=== PATIENT | male | born 1980 | race Asian ===

== ENCOUNTER 2024-09-30 00:53 | Emergency (ER) | payer SELFPAY ==
[2024-09-30] MEDS ORDERED: NA CHLORIDE 0.9% 1,000 ML ONE (01:10)
--- NOTE | 2024-09-30 01:35 | EDPHYS ---
Physician Documentation [facility] Name: Juaquin Blanco Age: 44 yrs Sex: Male : 1980 Arrival Date: 09/30/2024 Time: 00:53 Bed 14 Private MD: ED Physician Emery Wells HPI: 09/30 00:58 This 44 yrs old Unknown Male presents to ER via Unassigned with complaints of Overdose. sp3 00:58 44-year-old male with history of drug abuse and narcotic abuse presents to the ED via sp3 EMS for altered mental status now resolved after Narcan administration by patient's girlfriend prior to EMS arrival. Patient states that he took several Xanax that he bought off the street that were likely laced with fentanyl. Patient stopped breathing and girlfriend gave 2 doses of Narcan intranasally after which patient awoke. EMS found patient alert but sleepy and placed on oxygen and monitor patient to the ED. IV established prior to arrival. Review of systems otherwise negative for headache, trauma, neck pain, chest pain, shortness of breath, abdominal, vomiting, diarrhea, rash, bleeding or any other signs or symptoms on ROS at this time.. Historical: - Allergies: 00:55 No Known Allergies; rg5 - Immunization history:: Adult Immunizations not up to date. - Infectious Disease History:: Denies. - Social history:: Smoking status: Patient reports the use of cigarette tobacco products, denies chronic smoking, but will smoke occasionally. ROS: 00:59 Constitutional: Negative for fever, chills, and weight loss, Eyes: Negative for injury, sp3 pain, redness, and discharge, ENT: Negative for injury, pain, and discharge, Neck: Negative for injury, pain, and swelling, Cardiovascular: Negative for chest pain, palpitations, and edema, Abdomen/GI: Negative for abdominal pain, nausea, vomiting, diarrhea, and constipation, Back: Negative for injury and pain, MS/Extremity: Negative for injury and deformity, Skin: Negative for injury, rash, and discoloration, Allergy/Immunology: Negative for hives, rash, and allergies, Endocrine: Negative for neck swelling, polydipsia, polyuria, polyphagia, and marked weight changes, 00:59 All other systems are negative, Exam: 01:00 Constitutional: This is a well developed, well nourished patient who is awake, alert, sp3 and in no acute distress. Head/Face: Normocephalic, atraumatic. Eyes: Pupils equal round and reactive to light, extra-ocular motions intact. Lids and lashes normal. Conjunctiva and sclera are non-icteric and not injected. Cornea within normal limits. Periorbital areas with no swelling, redness, or edema. Neck: Trachea midline, no thyromegaly or masses palpated, and no cervical lymphadenopathy. Supple, full range of motion without nuchal rigidity, or vertebral point tenderness. No Meningismus. Chest/axilla: Normal chest wall appearance and motion. Nontender with no deformity. No lesions are appreciated. Cardiovascular: Regular rate and rhythm with a normal S1 and S2. No gallops, murmurs, or rubs. Normal PMI, no JVD. No pulse deficits. Respiratory: Lungs have equal breath sounds bilaterally, clear to auscultation and percussion. No rales, rhonchi or wheezes noted. No increased work of breathing, no retractions or nasal flaring. Abdomen/GI: Soft, non-tender, with normal bowel sounds. No distension or tympany. No guarding or rebound. No evidence of tenderness throughout. Back: No spinal tenderness. No costovertebral tenderness. Full range of motion. Skin: Warm, dry with normal turgor. Normal color with no rashes, no lesions, and no evidence of cellulitis. MS/ Extremity: Pulses equal, no cyanosis. Neurovascular intact. Full, normal range of motion. Neuro: Awake and alert, GCS 15, oriented to person, place, time, and situation. Cranial nerves II-XII grossly intact. Motor strength 5/5 in all extremities. Sensory grossly intact. Cerebellar exam normal. Normal gait. Psych: Awake, alert, with orientation to person, place and time. Behavior, mood, and affect are within normal limits. Vital Signs: 00:55 BP 134 / 88; Pulse 87; Resp 17; Temp 98; Pulse Ox 97% on R/A; Weight 89.36 kg; Height 6 rg5 ft. 2 in. ; 02:10 BP 122 / 79; Pulse 99; Resp 17; Temp 98.3; Pulse Ox 97% on R/A; Pain 0/10; rg5 00:55 Body Mass Index 25.29 (89.36 kg, 187.96 cm) rg5 02:10 Pain Scale: Adult rg5 MDM: 00:55 Medical Screening Exam initiated sp3 01:00 Data reviewed: vital signs, nurses notes. ED course: Differential diagnosis includes sp3 substance abuse with narcotic versus substance abuse with some other product. Patient is now alert and oriented laughing and joking with staff. We will give IV fluids and monitor for short amount of time to ensure it was not a longer acting agent. If no further decline, we will discharge patient home with girlfriend has more Narcan at home as well.. 01:34 ED course: Patient remains awake and alert and oriented and recognizes should have sp3 taken the medicine. He will be going home with his girlfriend who has additional Narcan at home. Both are alert and oriented and not under the influence currently. We will safely discharge home at this time.. 09/30 00:56 Order name: Cardiac monitoring; Complete Time: 01:13 sp3 09/30 00:56 Order name: IV Saline Lock; Complete Time: 01:25 sp3 09/30 00:56 Order name: O2 Per Protocol; Complete Time: 01:13 sp3 09/30 00:56 Order name: O2 Sat Monitoring; Complete Time: :13 sp3 Administered Medications: :25 Drug: NS 0.9% IV 1000 ml IV at 125 ml/hr Per protocol Route: IV; Rate: 125 ml/hr; Site: rg5 right antecubital; 02:09 Follow up: IV Status: Completed infusion; IV Intake: 1000ml rg5 Disposition Summary: 09/30/24 01:35 Discharge Ordered Notes: Location: Home sp3 Condition: Stable sp3 Diagnosis - Narcotic overdose sp3 Followup: sp3 - With: Private Physician - When: Upon discharge from the Emergency Department - Reason: Continuance of care Discharge Instructions: - Discharge Summary Sheet sp3 - Opioid Overdose sp3 Forms: - Medication Reconciliation Form sp3 - Antibiotic Education sp3 - Prescription Opioid Use sp3 - Patient Portal Instructions sp3 - Leadership Thank You Letter sp3 Signatures: Emery Wells MD MD sp3 Aaron Joy RN RN rg5
--- NOTE | 2024-09-30 01:35 | ER ---
Nurse's Notes [facility] Name: Juaquin Blanco Age: 44 yrs Sex: Male : 1980 Arrival Date: 09/30/2024 Time: 00:53 Bed 14 [facility] MD: Diagnosis: Narcotic overdose Presentation: 09/30 00:55 Chief complaint: EMS states: patients girlfriend call us because the patient fall down rg5 on his right side and went unconscious believe to have taken Xanax 1 tab \\T\\ meth. he was been given 2x of Narcan 4 mg intranasal by his GF and already awake when we arrive at the scene. Coronavirus screen: Client denies travel out of the [place] in the last 14 days. Ebola Screen: Patient negative for fever greater than or equal to 101.5 degrees Fahrenheit, and additional compatible Ebola Virus Disease symptoms Patient denies exposure to infectious person. Initial Sepsis Screen: Does the patient meet any 2 criteria? No. Patient's initial sepsis screen is negative. Does the patient have a suspected source of infection? No. Patient's initial sepsis screen is negative. Risk Assessment: Do you want to hurt yourself or someone else? Patient reports no desire to harm self or others. Onset of symptoms was September 30, 2024 at 00:05. Care prior to arrival: Oxygen administered. via nasal cannula. 00:55 Method Of Arrival: EMS: [place] [id number] 00:55 Acuity: DOLORES 3 rg5 00:55 Activity prior to arrival: loss of consciousness. Mechanism of Injury: Fall from rg5 standing position. Triage Assessment: 00:55 General: Appears in no apparent distress. comfortable, Behavior is calm, cooperative, rg5 appropriate for age. Pain: Complains of pain in posterior aspect of right lateral abdomen. EENT: No deficits noted. Neuro: Level of Consciousness is awake, alert, obeys commands, Oriented to person, place, time, situation. Cardiovascular: Denies chest pain, Patient's skin is warm and dry. Respiratory: Airway is patent Trachea midline Respiratory effort is even, unlabored, Respiratory pattern is regular, symmetrical. GI: Abdomen is flat, non-distended. : No signs and/or symptoms were reported regarding the genitourinary system. Derm: Skin is intact, Skin is dry, Skin is normal. Musculoskeletal: Circulation, motion, and sensation intact. Range of motion: intact in all extremities. Historical: - Allergies: 00:55 No Known Allergies; rg5 - Immunization history:: Adult Immunizations not up to date. - Infectious Disease History:: Denies. - Social history:: Smoking status: Patient reports the use of cigarette tobacco products, denies chronic smoking, but will smoke occasionally. Screenin:00 [facility] ED Fall Risk Assessment (Adult) History of falling in the last 3 months, rg5 including since admission No falls in past 3 months (0 pts) Confusion or Disorientation No (0 pts) Intoxicated or Sedated No (0 pts) Impaired Gait No (0 pts) Mobility Assist Device Used No (0 pt) Altered Elimination No (0 pt) Score/Fall Risk Level 0 - 2 = Low Risk Oriented to surroundings, Maintained a safe environment, Hourly rounding (assess needs \\T\\ fall precautionary measures) done. Abuse screen: Denies threats or abuse. Nutritional screening: No deficits noted. Tuberculosis screening: No symptoms or risk factors identified. Assessment: 01:00 Reassessment: see triage assessment. rg5 01:00 General: Appears in no apparent distress. comfortable. Pain: Denies pain. rg5 Overdose: 00:55 [place] Suicide Severity Screening: "In the past month, have you wished you were rg5 or wished you could go to sleep and not wake up?" Patient responds "no." Patient responds "yes." Based off client's responses, additional C-SSRS screening questions required. "In the past month, have you actually had any thoughts of killing yourself?" Patient responds "no." "In your lifetime, have you ever done anything, started to do anything, or prepared to do anything to end your life?" Patient responds "no.". Patient took xanax. 00:55 Overdose occurred 30 minutes to 1 hour ago. rg5 02:09 [place] Suicide Severity Screening: "In the past month, have you wished you were rg5 or wished you could go to sleep and not wake up?" Patient responds "no." "In the past month, have you actually had any thoughts of killing yourself?" Patient responds "no." Patient responds "yes." Based off client's responses, additional C-SSRS screening questions required. "In your lifetime, have you ever done anything, started to do anything, or prepared to do anything to end your life?" Patient responds "no.". Vital Signs: 00:55 BP 134 / 88; Pulse 87; Resp 17; Temp 98; Pulse Ox 97% on R/A; Weight 89.36 kg; Height 6 rg5 ft. 2 in. ; 02:10 BP 122 / 79; Pulse 99; Resp 17; Temp 98.3; Pulse Ox 97% on R/A; Pain 0/10; rg5 00:55 Body Mass Index 25.29 (89.36 kg, 187.96 cm) rg5 02:10 Pain Scale: Adult rg5 ED Course: 00:53 Patient arrived in ED. [id number] 00:55 Emery Wells MD is Attending Physician. sp3 00:55 Arm band placed on left wrist. rg5 01:00 Patient has correct armband on for positive identification. Call light in reach. Side rg5 rails up X 1. Provided Education on: post er care. Door closed. Noise minimized. 01:00 No provider procedures requiring assistance completed. Inserted saline lock: 20 gauge rg5 in right antecubital area, using aseptic technique. Blood collected. Flushed with 10 mL NS. 01:13 Aaron Joy, SANDRA is Primary Nurse. rg5 01:34 Triage completed. rg5 02:09 IV discontinued, bleeding controlled, No redness/swelling at site. Pressure dressing rg5 applied. Administered Medications: 01:25 Drug: NS 0.9% IV 1000 ml IV at 125 ml/hr Per protocol Route: IV; Rate: 125 ml/hr; Site: rg5 right antecubital; 02:09 Follow up: IV Status: Completed infusion; IV Intake: 1000ml rg5 Medication: 01:00 VIS not applicable for this client. rg5 Intake: 02:09 IV: 1000ml; Total: 1000ml. rg5 Outcome: 01:35 Discharge ordered by . sp3 02:10 Discharged to home ambulatory, rg5 02:10 Condition: stable 02:10 Discharge instructions given to patient, Instructed on discharge instructions, follow up and referral plans. Demonstrated understanding of instructions, follow-up care, 02:11 Patient left the ED. rg5 Signatures: Emery Wells MD MD sp3 Yesenia Daniels 6 Aaron Joy, RN RN rg5
[2024-09-30 02:21] VITALS: BP 122/79; TEMP 98.3; O2SAT 97
== END 2024-09-30 02:11 | disposition home or self-care (01) ==
LOC: ER 00:53
DX: T40.601A Poisoning by unspecified narcotics, accidental (unintentional), initial encounter (principal)
CPT/HCPCS: 96360; 99285; J7030

== ENCOUNTER 2024-11-09 18:39 | Emergency (ER) | payer OTHER ==
--- NOTE | 2024-11-09 19:16 | EDPHYS ---
Physician Documentation [facility] Name: Juaquin Blanco Age: 44 yrs Sex: Male : 1980 Arrival Date: 11/09/2024 Time: 18:39 Bed DX3 Private MD: ED Physician Star Perez HPI: 11/09 19:08 This 44 yrs old Male presents to ER via Law [employer] with complaints of sp4 Medical Clearance. 19:13 Patient presents with a complaint of punching himself in the head last night. Patient sp4 complains of headache. Patient is currently in custody. resident medical officer brought patient to be evaluated and cleared.. Historical: - Allergies: 18:41 No Known Allergies; aa5 - Home Meds: 18:41 None [Active]; aa5 - PMHx: 18:41 None; aa5 - PSHx: 18:41 None; aa5 - Immunization history:: Adult Immunizations unknown. - Infectious Disease History:: Denies. - Social history:: Smoking status: Patient reports the use of cigarette tobacco products. Vital Signs: 18:41 BP 127 / 84; Pulse 71; Resp 16 S; Temp 97.5(TE); Pulse Ox 98% on R/A; Weight 90.72 kg aa5 (R); Height 6 ft. 2 in. (R); 18:41 Body Mass Index 25.68 (90.72 kg, 187.96 cm) aa5 MDM: 19:15 Medical Screening Exam initiated sp4 Administered Medications: No medications were administered Disposition Summary: 11/09/24 19:15 Discharge Ordered Problem: new sp4 Symptoms: have improved sp4 Condition: Stable sp4 Diagnosis - Acute headache, Anger and irritability sp4 Followup: sp4 - With: Private Physician - When: As needed - Reason: Discharge Instructions: - Discharge Summary Sheet sp4 - Medical Screening Exam sp4 Forms: - Patient Portal Instructions sp4 Signatures: Rosa Sanford RN RN aa5 Star Perez MD MD sp4
--- NOTE | 2024-11-09 19:16 | ER ---
Nurse's Notes [facility] Name: Juaquin Blanco Age: 44 yrs Sex: Male : 1980 Arrival Date: 11/09/2024 Time: 18:39 Bed DX3 Private MD: Diagnosis: Acute headache, Anger and irritability Presentation: 11/09 18:41 Chief complaint: [place] [employer] reports pt need to be medically cleared to be released aa5 into County custody. Pt states "I just need my labs checked and I was punching myself in the head yesterday so I need to be checked for that". 18:41 Coronavirus screen: At this time, the client does not indicate any symptoms associated aa5 with coronavirus-19. Ebola Screen: No symptoms or risks identified at this time. Initial Sepsis Screen: Does the patient meet any 2 criteria? No. Patient's initial sepsis screen is negative. Does the patient have a suspected source of infection? No. Patient's initial sepsis screen is negative. Risk Assessment: Do you want to hurt yourself or someone else? Patient reports no desire to harm self or others. Onset of symptoms was November 09, 2024. 18:41 Acuity: DOLORES 4 aa5 18:41 Method Of Arrival: Law Enforcement: Ambrose VENEGAS aa5 Historical: - Allergies: 18:41 No Known Allergies; aa5 - Home Meds: 18:41 None [Active]; aa5 - PMHx: 18:41 None; aa5 - PSHx: 18:41 None; aa5 - Immunization history:: Adult Immunizations unknown. - Infectious Disease History:: Denies. - Social history:: Smoking status: Patient reports the use of cigarette tobacco products. Assessment: 19:36 Reassessment: Patient and/or family updated on plan of care and expected duration. Pain ha1 level reassessed. Patient is alert, oriented x 3, equal unlabored respirations, skin warm/dry/pink. Vital Signs: 18:41 BP 127 / 84; Pulse 71; Resp 16 S; Temp 97.5(TE); Pulse Ox 98% on R/A; Weight 90.72 kg aa5 (R); Height 6 ft. 2 in. (R); 18:41 Body Mass Index 25.68 (90.72 kg, 187.96 cm) aa5 ED Course: 18:41 Patient arrived in ED. eb 18:41 Arm band placed on. aa5 18:53 Triage completed. aa5 19:07 Star Perez MD is Attending Physician. sp4 Administered Medications: No medications were administered Outcome: 19:15 Discharge ordered by . sp4 19:36 Patient left the ED. ha1 Addendum: 11/11/2024 04:46 Addendum: Other 11/09/2024 AT 2000. DENIES ANY PAIN, AOX4, RESPIRATIONS EVEN AND h a1 UNLABOR. PATIENT WAS DISCHARGED TO [employer]. NO IV ACCESS. Signatures: Rosa Sanford RN RN 5 Joan Lynn Heidy, RN RN [facility] Star Perez MD MD sp4
== END 2024-11-09 19:36 | disposition home or self-care (01) ==
LOC: ER 18:39
DX: R51.9 Headache, unspecified (principal); R45.4 Irritability and anger
CPT/HCPCS: 99281